=== PATIENT | female | born 1960 | race Caucasian/White ===

== ENCOUNTER 2020-10-25 11:22 | Emergency (ER) | payer MEDICARE ==
[~2020-10-25] VITALS: Ht 160 cm; Wt 49.5 kg
[2020-10-25 11:26] VITALS: TEMP 98.1
[2020-10-25 12:33] LABS: BASO % 0.2 % (0.0-2.0); EOS # 0.1 (0.0-0.7); EOS % 0.7 % (0-4.0); GRAN # 8.4 (1.4-6.5); GRAN % 76.9 % (42.2-75.2); HEMATOCRIT 37.3 % (37.0-47.0); HEMOGLOBIN 12.7 g/dl (12.5-16.0); LYMPH # 1.6 (1.2-3.4); LYMPH % 14.5 % (20.0-51.0); MEAN CELL VOLUME 84 fl (80.0-100.0); MEAN CORPUSCULAR HEMOGLOBIN 29 pg (27.0-31.0); MEAN CORPUSCULAR HGB CONC 34 g/dl (33.0-37.0); MEAN PLATELET VOLUME 10.1 fl (7.4-10.4); MONO # 0.8 (0.1-0.6); MONO % 7.3 % (1.7-9.3); PLATELET COUNT 224 K/mm3 (130-400); RED BLOOD COUNT 4.42 M/mm3 (4.10-5.30); REDCELL DISTRIBUTION WIDTH-CV 13.5 % (11.5-14.5)
[2020-10-25 12:47] LABS: ALBUMIN 3.3 gm/dL (3.5-5.0); BILIRUBIN,TOTAL 0.4 mg/dL (0.0-1.0); CREATININE, serum 0.91 (0.52-1.25); POTASSIUM 4.3 mmol/L (3.4-5.0); TOTAL PROTEIN 6.6 gm/dL (6.4-8.2)
[2020-10-25 13:12] LABS: C-REACTIVE PROTEIN 13.8 mg/dL (0.0-0.9)
[2020-10-25] MEDS ORDERED: DOXYCYCLINE 10100 MG PO (13:40)
[2020-10-25] MEDS ORDERED: CRUTCHES MC (14:28)
[2020-10-25 14:53] VITALS: BP 104/68; PULSE 88
== END 2020-10-25 14:56 | disposition home or self-care (01) ==
LOC: COL.ER 11:22
PROVIDERS: Physician Assistant
DX: L03.116 Cellulitis of left lower limb (principal); F42.4 Excoriation (skin-picking) disorder
CPT/HCPCS: J1885; J2543; J3370; J7030; J7050

== ENCOUNTER 2021-11-13 05:51 | Day surgery (SDC) | payer MEDICARE, MEDICAID ==
[~2021-11-13] VITALS: Ht 160 cm; Wt 54.3 kg
[~2021-11-13 05:51] MED LIST: CRUTCHES MC; DOXYCYCLINE 10100 MG PO
[2021-11-13 06:28] VITALS: BP 144/90; PULSE 88; TEMP 97.9
[2021-11-13] MEDS ORDERED: DOXYCYCLINE HY100 MG PO (07:16)
[2021-11-13] MEDS ORDERED: LYRICA 100MG C100 M1 PO (07:17)
[2021-11-13] MEDS ORDERED: COREG 6.256.25 MG/TA PO (07:18)
[2021-11-13] MEDS ORDERED: XANAX 0.5MG0.5 MG PO (07:18)
[2021-11-13 07:33] LABS: TRICYCLIC ANTIDEPRESS URINE NEGATIVE
--- NOTE | 2021-11-13 07:46 | NUR ---
DR. JEAN-BAPTISTE HERE AND TALKS WITH THE PATIENT. SURGERY CANCELLED AND PATIENT MAYBE DISCHARGED TO HOME WITH INSTRUCTIONS TO CONTINUE WEARING CAM WALKER. [facility] NOTIFIED AND WILL COME TO FAN ENGINE ENGINEER THE PATIENT. IV DISCONTINUED AND PATIENT DRESSES SELF.
--- NOTE | 2021-11-13 08:03 | NUR ---
PATIENT DISMISSED TO HOME DRIVEN BY [facility] AND PATIENT WAS TAKEN TO THE FRONT DOOR PER WHEELCHAIR AND ASSISTED INTO VEHICLE.
== END 2021-11-13 08:03 | disposition home or self-care (01) ==
LOC: SDCO 05:51
PROVIDERS: Registered Nurse
DX: S82.431A Displaced oblique fracture of shaft of right fibula, initial encounter for closed fracture (principal); F55.8 Abuse of other non-psychoactive substances; Z87.891 Personal history of nicotine dependence; Z53.8 Procedure and treatment not carried out for other reasons
CPT/HCPCS: J7120